=== PATIENT | male | born 1985 | race Caucasian/White ===

== ENCOUNTER → 2017-01-20 | Outpatient (CLI) | payer BC ==
[2017-01-20 08:22] LABS: CHLORIDE,CL 109 mmol/L (98-110); SODIUM,NA 140 mmol/L (136-146)
== END ==
LOC: MW.CHFP 07:36
PROVIDERS: ATTEND Physician Assistant
DX: R00.2 Palpitations (principal); R07.89 Other chest pain; D64.9 Anemia, unspecified
CPT/HCPCS: 36415; 80048; 80061; 82728; 83550; 84443; 85025; 85045; 93005

== ENCOUNTER 2019-06-13 11:51 | Emergency (ER) | payer BC ==
--- NOTE | 2019-06-13 12:25 | EDM.PDOC ---
ED HPI GENERAL MEDICAL PROBLEM - General Chief Complaint: Upper Extremity Injury/Pain Stated Complaint: POSSIBLE BROKEN WRIST FELL ON STAIRS Time Seen by Provider: 06/13/19 11:57 Source of Information: Reports: Patient History Limitations: Reports: No Limitations - History of Present Illness INITIAL COMMENTS - FREE TEXT/NARRATIVE: HISTORY AND PHYSICAL: History of present illness: Patient is a 33-year-old male presents to the ED today with concern of right wrist injury that occurred on Thursday. Patient states he was carrying a box down his steps when he had missed a step and tripped and caught himself with his right hand/wrist. Patient states since then he's had difficulty moving his right wrist. Patient denies any prior injury to the wrist or hand. Patient denies hitting his head or any loss of consciousness. Patient denies fever, chills, chest pain, shortness of breath, or cough. Denies headache, neck stiff ness, change in vision, syncope, or near syncope. Denies nausea, vomiting, abdominal pain, diarrhea, constipation, or dysuria. Has not noted any blood in urine or stool. Patient has been eating and drinking appropriately. Review of systems: As per history of present illness and below otherwise all systems reviewed and negative. Past medical history: As per history of present illness and as reviewed below otherwise noncontributory. Surgical history: As per history of present illness and as reviewed below otherwise noncontributory. Social history: See social history for further information Family history: As per history of present illness and as reviewed below otherwise noncontributory. Physical exam: General: Patient is alert, oriented, and in no acute distress. Patient sitting comfortably on exam table. HEENT: Atraumatic, normocephalic, pupils equal and reactive bilaterally, negative for conjunctival pallor or scleral icterus, mucous membranes moist, TMs normal bilaterally, throat clear, neck supple, nontender, trachea midline. No drooling or trismus noted. No meningeal signs. No hot potato voice noted. Lungs: Clear to auscultation, breath sounds equal bilaterally, chest nontender. Heart: S1S2, regular rate and rhythm without overt murmur Abdomen: Soft, nondistended, nontender. Negative for masses or hepatosplenomegaly. Negative for costovertebral tenderness. Pelvis: Stable nontender. Genitourinary: Deferred. Rectal: Deferred. Skin: Intact, warm, dry. No lesions or rashes noted. Extremities: Negative for cords or calf pain. Neurovascular unremarkable. No obvious deformity of the right wrist. The right wrist is mildly edematous in comparison to the left. Range of motion of the right wrist is limited due to pain. Negative pain for palpation of the right wrist but does have snuffbox tenderness. Patient has full range of motion of all digits of the hand elbow and shoulder on the right extremity. Radial pulses grossly intact and capillary refill less than 2 seconds. Neuro: Awake, alert, oriented. Cranial nerves II through XII unremarkable. Cerebellum unremarkable. Motor and sensory unremarkable throughout. Exam nonfocal. Notes: Discussed the importance of follow-up with the orthopedic provider. Voices understanding and is agreeable to plan of care. Denies any further questions or concerns at this time. Diagnostics: Hand XR, Wrist XR Therapeutics: Thumb spica splint Prescription: None Impression: Right hand / wrist injury Plan: 1. Rest, ice, elevate the affected extremity. You can apply ice 15 minutes on, 15 minutes off. 2. Tylenol and/or Ibuprofen as directed for pain management or discomfort. Leave splint on as discussed. 3. Follow up with the Orthopedic provider as discussed. Return to the ED as needed and as discussed. Definitive disposition and diagnosis as appropriate pending reevaluation and review of above. Right Wrist Pain Score (Numeric/FACES): 7 - Related Data Allergies Allergy/AdvReac Type Severity Reaction Status Date / Time No Known Allergies Allergy Verified 06/13/19 11:59 Home Meds: Home Meds . [No Known Home Meds] 01/29/16 [History] Past Medical History Gastrointestinal History: Reports: Other (See Below) Other Gastrointestinal History: crohns Hematologic History: Reports: Anemia - Infectious Disease History Infectious Disease History: Reports: Chicken Pox - Past Surgical History HEENT Surgical History: Reports: Tonsillectomy Social & Family History - Family History Family Medical History: Noncontributory - Tobacco Use Smoking Status *Q: Never Smoker - Caffeine Use Caffeine Use: Reports: None - Recreational Drug Use Recreational Drug Use: No Review of Systems - Review of Systems Review Of Systems: ROS reveals no pertinent complaints other than HPI. ED EXAM, GENERAL - Physical Exam Exam: See Below (see dictation) Course - Vital Signs Last Recorded V/S: Last Vital Signs Temp 36.2 C 06/13/19 11:59 Pulse 77 06/13/19 11:59 Resp 17 06/13/19 11:59 BP 133/88 06/13/19 11:59 Pulse Ox 98 06/13/19 11:59 Departure - Departure Time of Disposition: 12:58 Disposition: Home, Self-Care 01 Clinical Impression: Wrist injury Qualifiers: Encounter type: initial encounter Laterality: right Qualified Code(s): S69.91XA - Unspecified injury of right wrist, hand and finger(s), initial encounter Hand injury Qualifiers: Encounter type: initial encounter Laterality: right Qualified Code(s): S69.91XA - Unspecified injury of right wrist, hand and finger(s), initial encounter - Discharge Information Referrals: PCP,None [Primary Care Provider] - Forms: ED Department Discharge Additional Instructions: The following information is given to patients seen in the emergency department who are being discharged to home. This information is to outline your options for follow-up care. We provide all patients seen in our emergency department with a follow-up referral. The need for follow-up, as well as the timing and circumstances, are variable depending upon the specifics of your emergency department visit. If you don't have a primary care physician on staff, we will provide you with a referral. We always advise you to contact your personal physician following an emergency department visit to inform them of the circumstance of the visit and for follow-up with them and/or the need for any referrals to a consulting specialist. The emergency department will also refer you to a specialist when appropriate. This referral assures that you have the opportunity for follow-up care with a specialist. All of these measure are taken in an effort to provide you with optimal care, which includes your follow-up. Under all circumstances we always encourage you to contact your private physician who remains a resource for coordinating your care. When calling for follow-up care, please make the office aware that this follow-up is from your recent emergency room visit. If for any reason you are refused follow-up, please contact the [facility] at and asked to speak to the emergency department charge nurse. [facility] [address] [place] [id number] [facility] [address] [place] [address] [facility] Professional Building [address] [facility], [address] [place] [address] Dr Aguayo, Orthopedist [facility] [address] [place] [address] Dr Sibley - Dr Queen - Dr [facility] [address] [place] [address] [facility] [address] [place] [address] 1. Rest, ice, elevate the affected extremity. You can apply ice 15 minutes on, 15 minutes off. 2. Tylenol and/or Ibuprofen as directed for pain management or discomfort. Leave splint on as discussed. 3. Follow up with the Orthopedic provider as discussed. Return to the ED as needed and as discussed.
--- NOTE | 2019-06-13 12:56 | CR ---
INDICATION: Right wrist injury. TECHNIQUE: Three views of the right wrist. COMPARISON: Today`s right hand x-rays. FINDINGS: No fracture, subluxation or other abnormality. CONCLUSION: Negative right wrist. Dictated by Montana Mcdaniels MD @ Jun 13 2019 12:53PM Signed by Dr. Montana Mcdaniels @ Jun 13 2019 12:54PM
--- NOTE | 2019-06-13 12:56 | CR ---
INDICATION: Right hand injury. TECHNIQUE: Three views of the right hand. COMPARISON: Today`s right wrist x-rays. FINDINGS: No soft tissue swelling, fracture, subluxation or other abnormality. IMPRESSION: Negative right hand. Dictated by Montana Mcdaniels MD @ Jun 13 2019 12:54PM Signed by Dr. Montana Mcdaniels @ Jun 13 2019 12:55PM
[2019-06-13 13:13] VITALS: BP 133/87
== END 2019-06-13 13:12 | disposition home or self-care (01) ==
LOC: MW.ED 11:51
DX: S69.91XA Unspecified injury of right wrist, hand and finger(s), initial encounter (principal); W10.8XXA Fall (on) (from) other stairs and steps, initial encounter
CPT/HCPCS: 73110-26-RT; 73110-RT; 73130-26-RT; 73130-RT; 99283; 99283-25